=== PATIENT | female | born 1945 | race Caucasian/White ===

== ENCOUNTER 2024-03-07 18:44 | Inpatient (IN) | payer MEDICARE, OTHER ==
[~2024-03-07] VITALS: Ht 165.1 cm; Wt 72.3 kg
[2024-03-07] MEDS: FAMOTIDINE. 20 MG/2 ML VIAL IV ONE (19:15)
[2024-03-07] MEDS ORDERED: HYDR-4077 PO (19:20)
[2024-03-07] MEDS ORDERED: ACET-2154 PO (19:20)
[2024-03-07] MEDS ORDERED: HYDR-3972 PO (19:20)
[2024-03-07] MEDS ORDERED: FERR-68 PO (19:20)
[2024-03-07] MEDS ORDERED: SODI45SP5 NS (19:20)
[2024-03-07] MEDS ORDERED: PANT40TA49 PO (19:20)
[2024-03-07] MEDS ORDERED: ALBU2.5V38 NEB (19:20)
[2024-03-07] MEDS ORDERED: ESCI20TA PO (19:20)
[2024-03-07] MEDS ORDERED: SPIR25TA6 PO (19:20)
[2024-03-07] MEDS ORDERED: FURO40TA5 PO (19:20)
[2024-03-07] MEDS ORDERED: CHOL10005 PO (19:20)
[2024-03-07] MEDS ORDERED: CLOP75TA33 PO (19:20)
[2024-03-07] MEDS ORDERED: APIX2.5T PO (19:20)
[2024-03-07] MEDS ORDERED: IPRA0.2S48 NEB (19:20)
[2024-03-07] MEDS ORDERED: LEVO200T PO (19:20)
[2024-03-07] MEDS ORDERED: CLON-418 PO (19:20)
[2024-03-07] MEDS ORDERED: NIFE-35 PO (19:20)
[2024-03-07] MEDS ORDERED: MAGN400O6 PO (19:20)
[2024-03-07] MEDS ORDERED: ONDA4TAB11 PO (19:20)
[2024-03-07] MEDS ORDERED: MIRT-121 PO (19:20)
[2024-03-07] MEDS ORDERED: CARV3.12 PO (19:20)
[2024-03-07 19:27] LABS: BASOPHILS # (AUTO) 0.1 K/UL (0.0-0.2); BASOPHILS % (AUTO) 0.7 % (0.0-2.0); EOSINOPHILS # (AUTO) 0.3 K/uL (0.0-0.7); EOSINOPHILS % (AUTO) 2.6 % (0.0-7.0); HEMATOCRIT 26.6 % (31.2-41.9); HEMOGLOBIN 8.8 g/dL (10.9-14.3); LYMPHOCYTES # (AUTO) 1.4 K/uL (0.8-4.8); LYMPHOCYTES % (AUTO) 14.8 % (20.5-51.5); MEAN CORPUSCULAR HGB CONC 33 g/dL (32.3-35.6); MEAN CORPUSCULAR VOLUME 84.9 fL (75.5-95.3); MONOCYTES # (AUTO) 0.9 K/uL (0.1-1.30); MONOCYTES % (AUTO) 9.3 % (0.0-11.0); NEUTROPHILS # (AUTO) 7.1 K/uL (1.8-8.9); NEUTROPHILS % (AUTO) 72.6 % (38.5-71.5); PLATELET COUNT (AUTO) 325 K/uL (179-408); RED BLOOD CELL COUNT(AUTO) 3.13 MIL/uL (3.63-4.92); RED CELL DISTRIBUTION WIDTH 17.1 % (12.3-17.7); WHITE BLOOD COUNT (AUTO) 9.8 K/uL (3.8-11.8)
[2024-03-07 19:39] LABS: DIFFERENTIAL COMMENT 1
[2024-03-07 19:52] LABS: ALANINE AMINOTRANSFERASE 15 U/L (14-59); ALBUMIN 2.2 g/dL (3.4-5.0); ALKALINE PHOSPHATASE 50 U/L (50-136); ASPARTATE AMINOTRANSFERASE 6 U/L (15-37); BILIRUBIN,DIRECT 0.1 mg/dL (0.0-0.2); BILIRUBIN,TOTAL 0.3 mg/dL (0.2-1.0); CALCIUM 8.7 mg/dL (8.5-10.1); CARBON DIOXIDE 20 mmol/L (21-32); CHLORIDE 110 mmol/L (98-107); CREATININE 1.8 mg/dL (0.6-1.3); GLUCOSE 98 mg/dL (74-106); NT-PRO BNP 8538 pg/mL (0-125); POTASSIUM 5.3 mmol/L (3.5-5.1); SODIUM SERUM 142 mmol/L (136-145)
[2024-03-07 19:55] LABS: UREA NITROGEN, BLOOD 82 mg/dL (7-18)
[2024-03-07] MEDS ORDERED: FAMOTIDINE. 20 MG/2 ML VIAL IV ONE (20:17)
[2024-03-07] MEDS ORDERED: ATROPINE SULFATE 1 MG/10 ML DISP.SYRIN IV ONE (23:00)
[2024-03-07] MEDS ORDERED: ATROPINE SULFATE 1 MG/10 ML DISP.SYRIN ONE (23:03)
[2024-03-08] MEDS ORDERED: IOHEXOL 350 100 ML INFUS..BTL ONE (00:39)
[2024-03-08] MEDS ORDERED: SWABABLE VALVE TRANSFER SET EA MC ONE (00:39)
[2024-03-08] MEDS ORDERED: IV NORMAL SALINE 250 ML IV ONE (00:39)
[2024-03-08] MEDS ORDERED: TRANEXAMIC ACID 1,000 MG/10 ML VIAL ONE ×2 (01:03→05:32)
[2024-03-08] MEDS: TRANEXAMIC ACID 1,000 MG/10 ML VIAL IR ONE (01:17)
[2024-03-08] MEDS ORDERED: NEOMY/BACITRA/POLYMYXIN B OINT UD PACKET TP ONE (01:46)
[2024-03-08] MEDS ORDERED: REMEDY ESSENTIAL ZINC PASTE 113 GM TP PRN (02:30)
[2024-03-08] MEDS ORDERED: MAGNESIUM HYDROXIDE 30 ML LIQUID UDC PO PRN ×2 (02:30→12:45)
[2024-03-08 05:49] VITALS: BP 193/55; TEMP 97.7; O2SAT 93
[2024-03-08] MEDS: TRANEXAMIC ACID 1,000 MG/10 ML VIAL IR STA (05:52)
[2024-03-08] MEDS: PANTOPRAZOLE SODIUM 40 MG TABLET.DR PO SCH (07:00)
[2024-03-08 10:33] LABS: ALANINE AMINOTRANSFERASE 13 U/L (14-59); ALBUMIN 2.3 g/dL (3.4-5.0); ALKALINE PHOSPHATASE 56 U/L (50-136); ASPARTATE AMINOTRANSFERASE < 5 U/L (15-37); BILIRUBIN,TOTAL 0.5 mg/dL (0.2-1.0); CALCIUM 8.9 mg/dL (8.5-10.1); CARBON DIOXIDE 16 mmol/L (21-32); CHLORIDE 111 mmol/L (98-107); CREATININE 1.7 mg/dL (0.6-1.3); GLUCOSE 93 mg/dL (74-106); MAGNESIUM 1.9 mg/dL (1.8-2.4); PHOSPHOROUS 3.9 mg/dL (2.5-4.9); POTASSIUM 4.9 mmol/L (3.5-5.1); SODIUM SERUM 143 mmol/L (136-145); TOTAL PROTEIN, SERUM 7.5 g/dL (6.4-8.2); UREA NITROGEN, BLOOD 75 mg/dL (7-18)
[2024-03-08 11:46] VITALS: BP 189/59; TEMP 98.4; O2SAT 91
[2024-03-08] MEDS: hydrALAZINE HCL 25 MG TABLET PO PRN (12:14)
[2024-03-08] MEDS ORDERED: LEVALBUTEROL HCL NEB 0.63 MG/3 ML NEBU NEB PRN (12:45)
[2024-03-08] MEDS: CLOPIDOGREL 75 MG TABLET PO SCH (13:35)
[2024-03-08] MEDS: CARVEDILOL 3.125 MG TABLET PO SCH (13:36)
[2024-03-08] MEDS: NIFEdipine XL 30 MG TABSR PO SCH (13:36)
[2024-03-08] MEDS: APIXABAN 2.5 MG TABLET PO SCH (13:38)
[2024-03-08] MEDS: SPIRONOLACTONE 25 MG TABLET PO SCH (13:46)
[2024-03-08 15:40] VITALS: BP 173/65; TEMP 98.2; O2SAT 96
[2024-03-08 16:38] VITALS: BP 173/65; TEMP 98.2; O2SAT 96
[2024-03-08] MEDS: ACETAMINOPHEN 325 MG TABLET PO PRN (16:41)
[2024-03-08 17:03] LABS: *BILIRUBIN,URIN NEGATIVE (NEGATIVE); *BLOOD, URINE NEGATIVE (NEGATIVE); *CLARITY,URINE CLEAR (CLEAR); *COLOR,URINE YELLOW (YELLOW); *KETONES,URINE NEGATIVE (NEGATIVE); *PROTEIN,URINE TRACE (NEGATIVE); *UROBILINOGEN,URINE 0.2 E.U./dl (NORMAL); LEUKOCYTE ESTERASE ,URINE 3+ (NEGATIVE); NITRITE, URINE POSITIVE (NEGATIVE); UGLUCOSE NEGATIVE (NEGATIVE)
[2024-03-08 17:04] LABS: BACTERIA,URINE FEW /HPF (NONE SEEN); RBC,URINE 0-3 /HPF (0-3)
[2024-03-08 17:06] LABS: *CREATININE,URINE 38.3 mg/dL (30-125); *URINE TOTAL PROTEIN RANDOM 31.7 mg/dL (<150/24HR)
[2024-03-08 17:42] VITALS: O2SAT 97
[2024-03-08 19:00] VITALS: BP 148/78; TEMP 98.2; O2SAT 94
[2024-03-08] MEDS: MIRTAZAPINE 15 MG TABLET PO SCH (20:07)
[2024-03-09] VITALS (7 sets, daily range): BP systolic 134–168; BP diastolic 42–50; TEMP 97.6–98.1; O2SAT 95–100
[2024-03-09] MEDS: LEVOTHYROXINE SODIUM 200 MCG TABLET PO SCH (06:18)
[2024-03-09 07:00] LABS: BASOPHILS # (AUTO) 0.1 K/UL (0.0-0.2); BASOPHILS % (AUTO) 0.6 % (0.0-2.0); EOSINOPHILS # (AUTO) 0.2 K/uL (0.0-0.7); EOSINOPHILS % (AUTO) 1.6 % (0.0-7.0); HEMATOCRIT 27.3 % (31.2-41.9); HEMOGLOBIN 9.1 g/dL (10.9-14.3); LYMPHOCYTES # (AUTO) 1.2 K/uL (0.8-4.8); LYMPHOCYTES % (AUTO) 11.3 % (20.5-51.5); MEAN CORPUSCULAR HGB CONC 33 g/dL (32.3-35.6); MONOCYTES # (AUTO) 0.9 K/uL (0.1-1.30); MONOCYTES % (AUTO) 8.9 % (0.0-11.0); NEUTROPHILS # (AUTO) 7.9 K/uL (1.8-8.9); NEUTROPHILS % (AUTO) 77.6 % (38.5-71.5); PLATELET COUNT (AUTO) 353 K/uL (179-408); RED BLOOD CELL COUNT(AUTO) 3.13 MIL/uL (3.63-4.92); RED CELL DISTRIBUTION WIDTH 16.8 % (12.3-17.7); WHITE BLOOD COUNT (AUTO) 10.2 K/uL (3.8-11.8)
[2024-03-09 07:23] LABS: CALCIUM 8.8 mg/dL (8.5-10.1); CARBON DIOXIDE 18 mmol/L (21-32); CHLORIDE 112 mmol/L (98-107); CREATINE KINASE, TOTAL 19 U/L (26-192); CREATININE 1.8 mg/dL (0.6-1.3); GLUCOSE 99 mg/dL (74-106); MAGNESIUM 2.2 mg/dL (1.8-2.4); SODIUM SERUM 143 mmol/L (136-145); UREA NITROGEN, BLOOD 75 mg/dL (7-18)
[2024-03-09 07:37] LABS: DIFFERENTIAL COMMENT 1
[2024-03-09] MEDS: ESCITALOPRAM OXALATE 10 MG TABLET PO SCH (09:00)
[2024-03-09] MEDS ORDERED: PANTOPRAZOLE SODIUM 40 MG TABLET.DR PO SCH (09:00)
[2024-03-09] MEDS: FERROUS SULFATE 325 MG TABEC PO SCH (09:00)
[2024-03-09] MEDS ORDERED: Medication Not On Formulary EA (Escitalopram Oxalate (Lexapro) 1 TAB) PO SCH (09:00)
[2024-03-09] MEDS: hydrALAZINE HCL 50 MG TABLET PO SCH (23:43)
[2024-03-09] MEDS ORDERED: CEFTRIAXONE /D5W 50ML IVPB **ER PYXIS IV ONE (23:59)
[2024-03-10] VITALS (7 sets, daily range): BP systolic 148–179; BP diastolic 36–80; TEMP 97.5–98.4; O2SAT 94–98
[2024-03-10] MEDS: CEFTRIAXONE 1 G in IV DEXTROSE 5% 50 ML IV SCH (01:03)
[2024-03-10] MEDS: LORAZEPAM 0.5 MG TABLET PO ONE ×2 (02:02→02:08)
[2024-03-10 08:11] LABS: PTH, INTACT 14 pg/mL (15-65)
[2024-03-10] MEDS: NITROGLYCERIN 0.4 MG/TAB BOTTLE SL PRN (15:15)
[2024-03-10] MEDS: MAG HYDROX/AL HYDROX/SIMETH 30 ML LIQUID UDC PO PRN (22:30)
[2024-03-10] MEDS: ONDANSETRON 4 MG/2 ML VIAL IV PRN (22:58)
[2024-03-11] VITALS (7 sets, daily range): BP systolic 111–157; BP diastolic 40–71; TEMP 97.2–98.1; O2SAT 94–99
[2024-03-11] MEDS: CEFTRIAXONE 1 G in IV DEXTROSE 5% 50 ML IV SCH (00:17)
[2024-03-11] MEDS: MECLIZINE HCL 12.5 MG TABLET PO ONE (07:11)
[2024-03-11 08:10] LABS: A/G RATIO 0.6 (0.7-1.7); ALBUMIN 2.3 g/dL (2.9-4.4); ALPHA-1-GLOBULIN 0.3 g/dL (0.0-0.4); BETA GLOBULIN 0.9 g/dL (0.7-1.3); GAMMA GLOBULIN 1.6 g/dL (0.4-1.8); GLOBULIN, TOTAL 3.8 g/dL (2.2-3.9); M-SPIKE Not Observed g/dL (Not Observed); PROTEIN, TOTAL 6.1 g/dL (6.0-8.5)
[2024-03-11 08:15] LABS: BASOPHILS # (AUTO) 0.1 K/UL (0.0-0.2); BASOPHILS % (AUTO) 0.8 % (0.0-2.0); EOSINOPHILS # (AUTO) 0.1 K/uL (0.0-0.7); HEMOGLOBIN 8.6 g/dL (10.9-14.3); LYMPHOCYTES # (AUTO) 1.5 K/uL (0.8-4.8); LYMPHOCYTES % (AUTO) 11.7 % (20.5-51.5); MEAN CORPUSCULAR HGB CONC 33 g/dL (32.3-35.6); MONOCYTES % (AUTO) 8.2 % (0.0-11.0); NEUTROPHILS # (AUTO) 9.7 K/uL (1.8-8.9); NEUTROPHILS % (AUTO) 78.3 % (38.5-71.5); PLATELET COUNT (AUTO) 407 K/uL (179-408); RED BLOOD CELL COUNT(AUTO) 2.96 MIL/uL (3.63-4.92); RED CELL DISTRIBUTION WIDTH 17.4 % (12.3-17.7); WHITE BLOOD COUNT (AUTO) 12.5 K/uL (3.8-11.8)
[2024-03-11 08:23] LABS: DIFFERENTIAL COMMENT 1
[2024-03-11] MEDS: ASPIRIN 81 MG TAB.CHEW PO SCH (08:23)
[2024-03-11 08:30] LABS: CALCIUM 9.4 mg/dL (8.5-10.1); CARBON DIOXIDE 20 mmol/L (21-32); CHLORIDE 116 mmol/L (98-107); CREATININE 1.9 mg/dL (0.6-1.3); GLUCOSE 118 mg/dL (74-106); POTASSIUM 5.4 mmol/L (3.5-5.1); SODIUM SERUM 146 mmol/L (136-145); UREA NITROGEN, BLOOD 67 mg/dL (7-18)
[2024-03-11 08:35] LABS: ALANINE AMINOTRANSFERASE 6 U/L (14-59); ALBUMIN 2.4 g/dL (3.4-5.0); ALKALINE PHOSPHATASE 48 U/L (50-136); ASPARTATE AMINOTRANSFERASE 8 U/L (15-37); BILIRUBIN,TOTAL 0.3 mg/dL (0.2-1.0); TOTAL PROTEIN, SERUM 7.2 g/dL (6.4-8.2)
[2024-03-11] MEDS ORDERED: PIPERACILLIN/TAZO 2.25 G in IV DEXTROSE 5% 50 ML IV SCH (09:15)
[2024-03-11] MEDS: PIPERACILLIN SODIUM/TAZOBACTAM 3.375 G in IV DEXTROSE 5% 100 ML IV SCH (10:46)
[2024-03-11] MEDS: PROTEIN SUPPLEMENT (PROSTAT) 30 ML LIQUID PO SCH (12:07)
[2024-03-11] MEDS: SODIUM ZIRCONIUM CYCLOSILICATE 5 GM POWD.PACK PO ONE (12:21)
[2024-03-11 12:49] LABS: IRON, SERUM 45 ug/dL (50-175)
[2024-03-11] MEDS ORDERED: AZITHROMYCIN 250 MG TABLET PO SCH (13:30)
[2024-03-11] MEDS: AZITHROMYCIN 250 MG TABLET PO SCH (14:41)
[2024-03-11 15:06] LABS: HIV-1 p24 ANTIGEN NON REACTIVE (NONREACTIVE); HIV-1/2 ANTIBODY NON REACTIVE (NONREACTIVE)
[2024-03-11 15:26] LABS: CALCIUM 8.9 mg/dL (8.5-10.1); CARBON DIOXIDE 20 mmol/L (21-32); CHLORIDE 115 mmol/L (98-107); CREATININE 1.9 mg/dL (0.6-1.3); GLUCOSE 139 mg/dL (74-106); POTASSIUM 5.5 mmol/L (3.5-5.1); SODIUM SERUM 146 mmol/L (136-145); UREA NITROGEN, BLOOD 65 mg/dL (7-18)
[2024-03-11] MEDS: APIXABAN 2.5 MG TABLET PO SCH (23:44)
[2024-03-12] VITALS (14 sets, daily range): BP systolic 106–149; BP diastolic 37–54; TEMP 97.6–98.2; O2SAT 85–100
[2024-03-12] MEDS: IPRATROPIUM BROMIDE 0.5 MG/2.5 ML NEBU NEB PRN (05:39)
[2024-03-12] MEDS: ALBUTEROL SULFATE 1.25 MG/3 ML NEBU NEB PRN (05:39)
[2024-03-12] MEDS: LEVOTHYROXINE SODIUM 175 MCG TABLET PO SCH (06:43)
[2024-03-12 06:50] LABS: BASOPHILS # (AUTO) 0.1 K/UL (0.0-0.2); BASOPHILS % (AUTO) 0.3 % (0.0-2.0); EOSINOPHILS % (AUTO) 0.2 % (0.0-7.0); HEMATOCRIT 24.4 % (31.2-41.9); HEMOGLOBIN 7.9 g/dL (10.9-14.3); LYMPHOCYTES # (AUTO) 1.1 K/uL (0.8-4.8); LYMPHOCYTES % (AUTO) 6.1 % (20.5-51.5); MEAN CORPUSCULAR HEMOGLOBIN 28.1 uug (24.7-32.8); MEAN CORPUSCULAR HGB CONC 33 g/dL (32.3-35.6); MEAN CORPUSCULAR VOLUME 86.3 fL (75.5-95.3); MONOCYTES # (AUTO) 1.4 K/uL (0.1-1.30); MONOCYTES % (AUTO) 7.9 % (0.0-11.0); NEUTROPHILS # (AUTO) 14.8 K/uL (1.8-8.9); NEUTROPHILS % (AUTO) 85.5 % (38.5-71.5); PLATELET COUNT (AUTO) 434 K/uL (179-408); RED BLOOD CELL COUNT(AUTO) 2.82 MIL/uL (3.63-4.92); RED CELL DISTRIBUTION WIDTH 17.2 % (12.3-17.7); WHITE BLOOD COUNT (AUTO) 17.3 K/uL (3.8-11.8)
[2024-03-12 07:09] LABS: DIFFERENTIAL COMMENT 1
[2024-03-12 07:12] LABS: ALANINE AMINOTRANSFERASE 12 U/L (14-59); ALBUMIN 2.4 g/dL (3.4-5.0); ALKALINE PHOSPHATASE 43 U/L (50-136); ASPARTATE AMINOTRANSFERASE 6 U/L (15-37); BILIRUBIN,TOTAL 0.4 mg/dL (0.2-1.0); CALCIUM 8.9 mg/dL (8.5-10.1); CARBON DIOXIDE 20 mmol/L (21-32); CHLORIDE 113 mmol/L (98-107); CREATININE 2.3 mg/dL (0.6-1.3); GLUCOSE 148 mg/dL (74-106); MAGNESIUM 2.1 mg/dL (1.8-2.4); PHOSPHOROUS 4.6 mg/dL (2.5-4.9); POTASSIUM 5.1 mmol/L (3.5-5.1); SODIUM SERUM 144 mmol/L (136-145); TOTAL PROTEIN, SERUM 7.1 g/dL (6.4-8.2); UREA NITROGEN, BLOOD 65 mg/dL (7-18)
[2024-03-12] MEDS: ENOXAPARIN SODIUM 80 MG/0.8 ML DISP.SYRIN SQ SCH (08:58)
[2024-03-12 10:05] LABS: BAND % (MANUAL) 2 % (0-10); EOSINOPHILS % (MANUAL) 1 % (0-8); LYMPHOCYTES % (MANUAL) 4 % (20-40); MONOCYTES % (MANUAL) 5 % (2-10); NEUTROPHILS % (MANUAL) 88 % (42-75)
[2024-03-12 10:06] LABS: PLATELET ESTIMATE INCREASED
[2024-03-12 17:00] LABS: ABG BASE EXCESS -8.3 mmol/L (-2.0-3.0); ABG HCO3 17.2 mmol/L (21.0-28.0); ABG PCO2 35.1 mmHg (32.0-45.0); ABG PH 7.309 (7.350-7.450); ABG PO2 63.3 mmHg (83.0-108.0); ABG SITE RIGHT RADIAL; ABG TOTAL HEMOGLOBIN 8.6 G/dL (12.0-16.0); AaDO2 90.5 mmHg; COHb 0.2 % (0.5-1.5); O2Hb 91.8 % (94.0-98.0)
[2024-03-12] MEDS: MORPHINE SULFATE 2 MG/1 ML DISP.SYRIN IV PRN (17:58)
[2024-03-12 18:00] LABS: BASOPHILS % (AUTO) 0.2 % (0.0-2.0); DIFFERENTIAL COMMENT 1; EOSINOPHILS % (AUTO) 0.2 % (0.0-7.0); HEMATOCRIT 24.3 % (31.2-41.9); HEMOGLOBIN 7.9 g/dL (10.9-14.3); MEAN CORPUSCULAR HEMOGLOBIN 28.2 uug (24.7-32.8); MEAN CORPUSCULAR HGB CONC 32 g/dL (32.3-35.6); MONOCYTES # (AUTO) 1.5 K/uL (0.1-1.30); MONOCYTES % (AUTO) 8.9 % (0.0-11.0); NEUTROPHILS # (AUTO) 14.4 K/uL (1.8-8.9); NEUTROPHILS % (AUTO) 84.7 % (38.5-71.5); PLATELET COUNT (AUTO) 404 K/uL (179-408); RED BLOOD CELL COUNT(AUTO) 2.79 MIL/uL (3.63-4.92); RED CELL DISTRIBUTION WIDTH 17.6 % (12.3-17.7)
[2024-03-12 18:07] LABS: CALCIUM 8.5 mg/dL (8.5-10.1); CARBON DIOXIDE 22 mmol/L (21-32); CHLORIDE 111 mmol/L (98-107); CREATININE 2.3 mg/dL (0.6-1.3); GLUCOSE 145 mg/dL (74-106); POTASSIUM 5.3 mmol/L (3.5-5.1); SODIUM SERUM 144 mmol/L (136-145); UREA NITROGEN, BLOOD 67 mg/dL (7-18)
[2024-03-12] MEDS ORDERED: CEFEPIME HCL 1 G in IV DEXTROSE 5% 50 ML IV SCH (19:00)
[2024-03-12 19:41] LABS: FIBRINOGEN ACTIVITY > 450 mg/dL (210-360)
[2024-03-12] MEDS: CEFEPIME HCL 1 G in IV DEXTROSE 5% 50 ML IV SCH (20:32)
[2024-03-13] VITALS (17 sets, daily range): BP systolic 127–147; BP diastolic 44–51; TEMP 97.7–98.9; O2SAT 92–100
[2024-03-13 07:47] LABS: BASOPHILS % (AUTO) 0.2 % (0.0-2.0); EOSINOPHILS % (AUTO) 0.2 % (0.0-7.0); HEMATOCRIT 23.6 % (31.2-41.9); HEMOGLOBIN 7.7 g/dL (10.9-14.3); LYMPHOCYTES # (AUTO) 0.9 K/uL (0.8-4.8); LYMPHOCYTES % (AUTO) 5.5 % (20.5-51.5); MEAN CORPUSCULAR HEMOGLOBIN 28.9 uug (24.7-32.8); MEAN CORPUSCULAR HGB CONC 33 g/dL (32.3-35.6); MEAN CORPUSCULAR VOLUME 88.2 fL (75.5-95.3); MONOCYTES # (AUTO) 1.9 K/uL (0.1-1.30); MONOCYTES % (AUTO) 11.1 % (0.0-11.0); NEUTROPHILS # (AUTO) 14.1 K/uL (1.8-8.9); PLATELET COUNT (AUTO) 391 K/uL (179-408); RED BLOOD CELL COUNT(AUTO) 2.67 MIL/uL (3.63-4.92); RED CELL DISTRIBUTION WIDTH 17.2 % (12.3-17.7)
[2024-03-13 07:52] LABS: DIFFERENTIAL COMMENT 1
[2024-03-13 08:03] LABS: CALCIUM 8.7 mg/dL (8.5-10.1); CARBON DIOXIDE 21 mmol/L (21-32); CHLORIDE 111 mmol/L (98-107); CREATININE 2.5 mg/dL (0.6-1.3); GLUCOSE 117 mg/dL (74-106); PHOSPHOROUS 4.7 mg/dL (2.5-4.9); POTASSIUM 5.3 mmol/L (3.5-5.1); SODIUM SERUM 143 mmol/L (136-145); UREA NITROGEN, BLOOD 76 mg/dL (7-18)
[2024-03-13 08:23] LABS: MAGNESIUM 2.3 mg/dL (1.8-2.4)
[2024-03-13] MEDS ORDERED: ENOXAPARIN SODIUM 80 MG/0.8 ML DISP.SYRIN SQ SCH (13:15)
[2024-03-13] MEDS: FUROSEMIDE 40 MG/4 ML VIAL IV SCH (14:17)
[2024-03-13] MEDS: ASPIRIN 81 MG TAB.CHEW PO SCH (14:17)
[2024-03-13] MEDS: SODIUM ZIRCONIUM CYCLOSILICATE 10 GM POWD.PACK PO ONE (18:07)
[2024-03-13] MEDS: diphenhydrAMINE 50 MG/1 ML VIAL IV ONE (18:07)
[2024-03-13] MEDS: ACETAMINOPHEN 325 MG TABLET PO ONE (18:08)
[2024-03-13] MEDS ORDERED: HEPARIN SODIUM,PORCINE 5,000 UNITS/ML VIAL IV PRN ×2 (18:45→19:00)
[2024-03-13] MEDS: HEPARIN/D5W DRIP 500 ML IV SCH (22:19)
[2024-03-14 00:20] VITALS: O2SAT 98
[2024-03-14 03:51] VITALS: O2SAT 97
[2024-03-14 04:49] VITALS: BP 141/44; TEMP 98.4; O2SAT 96
[2024-03-14 04:54] LABS: BASOPHILS # (AUTO) 0.1 K/UL (0.0-0.2); BASOPHILS % (AUTO) 0.4 % (0.0-2.0); EOSINOPHILS % (AUTO) 0.1 % (0.0-7.0); HEMATOCRIT 26.9 % (31.2-41.9); HEMOGLOBIN 8.5 g/dL (10.9-14.3); LYMPHOCYTES # (AUTO) 1.1 K/uL (0.8-4.8); LYMPHOCYTES % (AUTO) 6.6 % (20.5-51.5); MEAN CORPUSCULAR HEMOGLOBIN 27.8 uug (24.7-32.8); MEAN CORPUSCULAR HGB CONC 31 g/dL (32.3-35.6); MEAN CORPUSCULAR VOLUME 88.6 fL (75.5-95.3); MONOCYTES # (AUTO) 2.1 K/uL (0.1-1.30); MONOCYTES % (AUTO) 12.7 % (0.0-11.0); NEUTROPHILS # (AUTO) 13.5 K/uL (1.8-8.9); NEUTROPHILS % (AUTO) 80.2 % (38.5-71.5); PLATELET COUNT (AUTO) 354 K/uL (179-408); RED BLOOD CELL COUNT(AUTO) 3.04 MIL/uL (3.63-4.92); RED CELL DISTRIBUTION WIDTH 17.8 % (12.3-17.7); WHITE BLOOD COUNT (AUTO) 16.8 K/uL (3.8-11.8)
[2024-03-14 04:59] LABS: DIFFERENTIAL COMMENT 1
[2024-03-14 05:04] LABS: CALCIUM 8.6 mg/dL (8.5-10.1); CARBON DIOXIDE 21 mmol/L (21-32); CHLORIDE 110 mmol/L (98-107); CREATININE 2.8 mg/dL (0.6-1.3); GLUCOSE 130 mg/dL (74-106); SODIUM SERUM 142 mmol/L (136-145)
[2024-03-14 05:08] LABS: UREA NITROGEN, BLOOD 82 mg/dL (7-18)
[2024-03-14 07:30] VITALS: O2SAT 97
[2024-03-14] MEDS ORDERED: ENOXAPARIN SODIUM 80 MG/0.8 ML DISP.SYRIN SQ SCH (09:00)
[2024-03-15 07:06] LABS: FREE KAPPA LT CHAINS SERUM 105.5 mg/L (3.3-19.4); FREE LAMBDA LT CHAIN SERUM 67.4 mg/L (5.7-26.3); KAPPA/LAMBDA RATIO SERUM 1.57 (0.26-1.65)
[2024-03-15 08:07] LABS: *IMMUNOGLOBULIN G, SERUM 1558 mg/dL (586-1602); IMMUNOGLOBULIN A, SERUM 303 mg/dL (64-422); IMMUNOGLOBULIN M, SERUM 52 mg/dL (26-217)
[2024-03-15 09:10] LABS: FOLATE (FOLIC ACID), SERUM 9.5 ng/mL (>3.0)
== END 2024-03-14 08:20 | disposition short-term general hospital (02) | DRG 302 ==
LOC: ER 18:55 → TELE3 03-08 04:03 → TELE-TD3 03-12 17:50
PROVIDERS: ADMIT Student in an Organized Health Care Education/Training Program; ATTEND Internal Medicine
PROC: 30233N1 Transfusion of Nonautologous Red Blood Cells into Peripheral Vein, Percutaneous Approach (ICD-10-PCS; principal; 2024-03-08)
PROC: 02HV33Z Insertion of Infusion Device into Superior Vena Cava, Percutaneous Approach (ICD-10-PCS; 2024-03-08)
PROC: B548ZZA Ultrasonography of Superior Vena Cava, Guidance (ICD-10-PCS; 2024-03-08)
DX: I25.119 Atherosclerotic heart disease of native coronary artery with unspecified angina pectoris (principal); I50.33 Acute on chronic diastolic (congestive) heart failure; J69.0 Pneumonitis due to inhalation of food and vomit; N17.0 Acute kidney failure with tubular necrosis; J96.01 Acute respiratory failure with hypoxia; N39.0 Urinary tract infection, site not specified; T82.838A Hemorrhage due to vascular prosthetic devices, implants and grafts, initial encounter; I13.0 Hypertensive heart and chronic kidney disease with heart failure and stage 1 through stage 4 chronic kidney disease, or unspecified chronic kidney disease; E44.0 Moderate protein-calorie malnutrition; E87.20 Acidosis, unspecified; D68.59 Other primary thrombophilia; Z95.1 Presence of aortocoronary bypass graft; I25.2 Old myocardial infarction; B96.89 Other specified bacterial agents as the cause of diseases classified elsewhere; B96.1 Klebsiella pneumoniae [K. pneumoniae] as the cause of diseases classified elsewhere; I48.0 Paroxysmal atrial fibrillation; E11.51 Type 2 diabetes mellitus with diabetic peripheral angiopathy without gangrene; D50.8 Other iron deficiency anemias; Y82.8 Other medical devices associated with adverse incidents; Y92.239 Unspecified place in hospital as the place of occurrence of the external cause; Z90.710 Acquired absence of both cervix and uterus; Z90.49 Acquired absence of other specified parts of digestive tract; Z79.01 Long term (current) use of anticoagulants; E11.22 Type 2 diabetes mellitus with diabetic chronic kidney disease; N18.9 Chronic kidney disease, unspecified; Z68.26 Body mass index [BMI] 26.0-26.9, adult; K21.9 Gastro-esophageal reflux disease without esophagitis; M89.8X9 Other specified disorders of bone, unspecified site; E78.5 Hyperlipidemia, unspecified; E87.5 Hyperkalemia; E05.90 Thyrotoxicosis, unspecified without thyrotoxic crisis or storm; E88.09 Other disorders of plasma-protein metabolism, not elsewhere classified; Z79.02 Long term (current) use of antithrombotics/antiplatelets; I08.0 Rheumatic disorders of both mitral and aortic valves; E03.9 Hypothyroidism, unspecified; Z74.09 Other reduced mobility; Z79.899 Other long term (current) drug therapy; R00.1 Bradycardia, unspecified; E66.9 Obesity, unspecified
CPT/HCPCS: 36415; 36600; 70030-TC; 71045; 76775; 78579; 82746; 82784; 82803; 83550; 83605; 83735; 83970; 84100; 84155; 84165; 84300; 84443; 84484; 85025; 85730; 86334; 86850; 86900; 86901; 86920; 87806; 93005; 93307; 94640; A4606; A4663; A6213; A9540; G0378; J0461; J0692; J0696; J1200; J1644; J1650; J1940; J2270; J2405; J2543; J3490; J3590; J7040; J8597; P9016; Q0144; Q9967